=== PATIENT | female | born 1970 | race Caucasian/White ===

== ENCOUNTER 2018-01-30 08:07 | Emergency (ER) | payer BC ==
[~2018-01-30] VITALS: Ht 177.8 cm; Wt 68.8 kg
[~2018-01-30 08:07] MED LIST: ACET-1256 PO; ASPI-390 PO; IBUP-103 PO
[2018-01-30 08:11] VITALS: Ht 177.8 cm; Wt 68.8 kg
[2018-01-30] MEDS ORDERED: KETOROLAC TROMETHAMINE 30 MG/ML VIAL IV STA (08:28)
[2018-01-30] MEDS ORDERED: SODIUM CHLORIDE 0.9% 1000ML 1,000 ML IV STA (08:28)
[2018-01-30] MEDS ORDERED: ONDANSETRON INJ 2 MG/ML 2 ML VIAL IV STA (08:28)
[2018-01-30] MEDS ORDERED: HYDROmorphone INJ 1 MG/ML SYR IV STA (08:28)
[2018-01-30 08:56] LABS: BASO % 0.2 %; BASO ABS # 0.02 K/uL (0-0.2); EOS % 1.1 %; HEMOGLOBIN 13.6 g/dL (12.0-16.0); IG# 0.01 K/uL (0.00-0.02); LYMPH % 9.8 %; LYMPH ABS # 0.89 K/uL (1.2-3.4); MEAN CELL VOLUME 89.9 fL (80-100); MEAN CORPUSCULAR HEMOGLOBIN 31.3 pg (25-34); MEAN CORPUSCULAR HGB CONC 34.9 g/dl (32-36); MEAN PLATELET VOLUME 11.5 fL (7.4-10.4); MONO % 5.6 %; MONO ABS # 0.51 K/uL (0.11-0.59); NEUT % 83.2 %; NEUT ABS # 7.58 K/uL (1.4-6.5); PLATELET COUNT 213 K/uL (130-400); RED CELL DISTRIBUTION WIDTH CV 13.2 % (11.5-14.5); RED CELL DISTRIBUTION WIDTH SD 43.2 fL (36.4-46.3); WHITE BLOOD COUNT 9.11 K/uL (4.8-10.8)
[2018-01-30 09:13] LABS: ALBUMIN 4.5 gm/dl (3.4-5.0); CALCIUM 9.6 mg/dl (8.5-10.1); CREATININE 1.02 mg/dl (0.60-1.20); POTASSIUM 3.5 mmol/L (3.5-5.1)
[2018-01-30 09:16] LABS: TOTAL PROTEIN 8.5 gm/dl (6.4-8.2)
--- NOTE | 2018-01-30 09:16 | DIAGNOSTIC IMAGING REPORT ---
CT OF THE ABDOMEN AND PELVIS WITHOUT CONTRAST CLINICAL HISTORY: Left flank pain. COMPARISON STUDY: No previous studies for comparison. TECHNIQUE: Axial images of the abdomen and pelvis were obtained without IV contrast. Images were reviewed in the axial, sagittal, and coronal planes. A dose lowering technique was utilized adhering to the principles of ALARA. FINDINGS: Lung bases are clear. Multiple small bilateral renal calculi are noted which measure up to 4 mm. There is mild left hydronephrosis. The course of the left ureter is difficult to follow on this exam although there are 2 suspected closely apposed distal left ureteral calculi. The largest calculus measures 4 mm to the smaller calculus measures 2 mm. No additional ureteral calculi are identified. Evaluation of the abdomen and pelvis is suboptimal as unenhanced exam. The liver, spleen, adrenal glands and pancreas are normal. There is no evidence for a bowel obstruction. There is no lymphadenopathy or ascites. Additional pelvic calcifications represent phlebolith. There is subchondral sclerosis of the anterior superior aspect of the bilateral femoral heads without collapse. IMPRESSION: 1. Mild left hydronephrosis due to two suspected closely apposed distal left ureteral calculi which measure up to 4 mm. 2. Bilateral nephrolithiasis. 3. 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 Electronically signed by: Obey Roe M.D. 01/30/2018 9:15 AM Dictated Date/Time: 01/30/2018 9:04 AM
[2018-01-30] MEDS ORDERED: SYM100 PO (09:41)
[2018-01-30] MEDS ORDERED: ZONI100C2 PO (09:41)
[2018-01-30] MEDS ORDERED: WLLSR150 PO (09:41)
[2018-01-30] MEDS ORDERED: OXYC1TAB3 PO (10:02)
[2018-01-30 10:40] VITALS: BP 113/74; PULSE 75; TEMP 36.4; O2SAT 97
--- NOTE | 2018-01-30 13:48 | EMERGENCY ROOM VISIT NOTE ---
History First contact with patient: 08:12 Chief Complaint: ABDOMINAL PAIN Stated Complaint: KIDNEY PAIN, STOMACH PAIN, CHILLS Nursing Triage Summary: triage note; pt reports since waking today she has had left lower back pain and now the pain wrap around to the front too. pt denies any hx of kidney stones. pt reports nausea. History of Present Illness The patient is a 47 year old female who presents to the Emergency Room with complaints of progressively worsening left lower back/flank pain. The patient reports that she awoke this morning with this discomfort. As the morning has progressed, the pain has also progressively worsened. A friend who brought her here reported that she was in severe discomfort on route. The patient has not noticed any change in urinary frequency, pattern or discomfort. She has not noticed any blood in her urine. The patient reports that she usually is constipated. She denies any alleviating or aggravating factors for her pain. The patient reports nausea without vomiting. She denies any other recent infections, and currently rates her discomfort a 10 out of 10. The patient denies any prior history of GI disease or kidney stones. Review of Systems HEENT: Denies dizziness, visual problems, hearing loss, tinnitus. Denies difficulty swallowing or oral lesions. PULMONARY: Denies cough, shortness of breath, sputum production or hemoptysis. CARDIOVASCULAR: Denies chest pain, palpitations, dyspnea on exertion, orthopnea or peripheral edema. GASTROINTESTINAL: See HPI. GENITOURINARY: Denies dysuria, frequency, urgency or nocturia. NEUROLOGIC: Denies history of epilepsy, CVA, TIA or chronic headaches. MUSCULOSKELETAL: Denies history of joint tenderness/swelling. SKIN: Denies rashes or lesions. PSYCHIATRIC: Denies history of depression or mental illness. ENDOCRINE: Denies history of diabetes or thyroid disorders. Past Medical/Surgical History Medical Problems: (1) Cerebrovascular disease (2) Chronic interstitial cystitis (3) Shingles (4) Zoster Surgical Problems: (1) S/P tubal ligation Family History Cancer Diabetes mellitus Heart disease Hypertension Social History Smoking Status: Never Smoker Alcohol Use: none Marital Status: Housing Status: lives with family Occupation Status: employed Current/Historical Medications Scheduled Amantadine HCl (Amantadine HCl), 100 MG PO HS Bupropion HCl (Bupropion HCl Sr), 150 MG PO HS Zonisamide (Zonegran), 100 MG PO HS Scheduled PRN Ibuprofen Tab (Advil), 800 MG PO Q6H PRN for Headache or Pain Oxycodone Ir (Roxicodone Ir), 1-2 TAB PO Q4H PRN for Pain Physical Exam Vital Signs Date Time Temp Pulse Resp B/P (MAP) Pulse Ox O2 Delivery O2 Flow Rate FiO2 01/30/18 10:40 36.4 75 18 113/74 97 01/30/18 10:27 75 18 113/74 97 01/30/18 09:21 79 18 124/83 97 Room Air 01/30/18 08:11 36.4 84 18 125/72 99 Room Air Physical Exam CONSTITUTIONAL: Healthy and well nourished. Alert and oriented X 3 with positive affect. Patient appears in moderately severe discomfort. HEENT: Normocephalic, atraumatic. Pupils equal, round and reactive. No scleral icterus or conjunctival injection. NECK: Full active range of motion without discomfort. RESPIRATORY: Clear to auscultation bilaterally with no wheezing, crackles, rhonchi or stridor. CARDIOVASCULAR: Regular rate and rhythm with no murmurs, rubs or gallops. GASTROINTESTINAL: Bowel sounds present in all quadrants. Patient has no focal abdominal tenderness to palpation. She does have mild left flank tenderness to palpation without evidence for ecchymosis or erythema. Negative McBurney's point tenderness. No focal left lower quadrant tenderness to palpation. No abdominal rigidity, guarding or rebound. MUSCULOSKELETAL: Full range of motion of all joints without discomfort. INTEGUMENTARY: No rash or other significant dermatologic conditions noted. hematologic: No ecchymosis or petechiae appreciated. NEUROLOGIC: No focal neurologic deficits noted. Medical Decision & Procedures ER Provider Diagnostic Interpretation: Noncontrast CT of the abdomen and pelvis shows 2 distal left ureteral calculi measuring up to 4 mm. Additional and multiple small bilateral renal calculi are also noted. Radiologist report is as follows: CT OF THE ABDOMEN AND PELVIS WITHOUT CONTRAST CLINICAL HISTORY: Left flank pain. COMPARISON STUDY: No previous studies for comparison. TECHNIQUE: Axial images of the abdomen and pelvis were obtained without IV contrast. Images were reviewed in the axial, sagittal, and coronal planes. A dose lowering technique was utilized adhering to the principles of ALARA. FINDINGS: Lung bases are clear. Multiple small bilateral renal calculi are noted which measure up to 4 mm. There is mild left hydronephrosis. The course of the left ureter is difficult to follow on this exam although there are 2 suspected closely apposed distal left ureteral calculi. The largest calculus measures 4 mm to the smaller calculus measures 2 mm. No additional ureteral calculi are identified. Evaluation of the abdomen and pelvis is suboptimal as unenhanced exam. The liver, spleen, adrenal glands and pancreas are normal. There is no evidence for a bowel obstruction. There is no lymphadenopathy or ascites. Additional pelvic calcifications represent phlebolith. There is subchondral sclerosis of the anterior superior aspect of the bilateral femoral heads without collapse. IMPRESSION: 1. Mild left hydronephrosis due to two suspected closely apposed distal left ureteral calculi which measure up to 4 mm. 2. Bilateral nephrolithiasis. 3. 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 Laboratory Results 01/30/18 08:45 Red Blood Count 4.34, Mean Corpuscular Volume 89.9, Mean Corpuscular Hemoglobin 31.3, Mean Corpuscular Hemoglobin Concent 34.9, Mean Platelet Volume 11.5, Neutrophils (%) (Auto) 83.2, Lymphocytes (%) (Auto) 9.8, Monocytes (%) (Auto) 5.6, Eosinophils (%) (Auto) 1.1, Basophils (%) (Auto) 0.2, Neutrophils # (Auto) 7.58, Lymphocytes # (Auto) 0.89, Monocytes # (Auto) 0.51, Eosinophils # (Auto) 0.10, Basophils # (Auto) 0.02 01/30/18 08:45 Test 01/30/18 08:45 White Blood Count 9.11 K/uL (4.8-10.8) Red Blood Count 4.34 M/uL (4.2-5.4) Hemoglobin 13.6 g/dL (12.0-16.0) Hematocrit 39.0 % (37-47) Mean Corpuscular Volume 89.9 fL (80-100) Mean Corpuscular Hemoglobin 31.3 pg (25-34) Mean Corpuscular Hemoglobin Concent 34.9 g/dl (32-36) Platelet Count 213 K/uL (130-400) Mean Platelet Volume 11.5 fL (7.4-10.4) Neutrophils (%) (Auto) 83.2 % Lymphocytes (%) (Auto) 9.8 % Monocytes (%) (Auto) 5.6 % Eosinophils (%) (Auto) 1.1 % Basophils (%) (Auto) 0.2 % Neutrophils # (Auto) 7.58 K/uL (1.4-6.5) Lymphocytes # (Auto) 0.89 K/uL (1.2-3.4) Monocytes # (Auto) 0.51 K/uL (0.11-0.59) Eosinophils # (Auto) 0.10 K/uL (0-0.5) Basophils # (Auto) 0.02 K/uL (0-0.2) RDW Standard Deviation 43.2 fL (36.4-46.3) RDW Coefficient of Variation 13.2 % (11.5-14.5) Immature Granulocyte % (Auto) 0.1 % Immature Granulocyte # (Auto) 0.01 K/uL (0.00-0.02) Urine Color DK YELLOW Urine Appearance CLOUDY (CLEAR) Urine pH 5.5 (4.5-7.5) Urine Specific [place] 1.022 (1.000-1.030) Urine Protein NEG (NEG) Urine Glucose (UA) NEG (NEG) Urine Ketones NEG (NEG) Urine Occult Blood 3+ (NEG) Urine Nitrite NEG (NEG) Urine Bilirubin NEG (NEG) Urine Urobilinogen NEG (NEG) Urine Leukocyte Esterase TRACE (NEG) Urine WBC (Auto) 1-5 /hpf (0-5) Urine RBC (Auto) >30 /hpf (0-4) Urine Hyaline Casts (Auto) 1-5 /lpf (0-5) Urine Epithelial Cells (Auto) >30 /lpf (0-5) Urine Bacteria (Auto) NEG (NEG) Anion Gap 9.0 mmol/L (3-11) Est Creatinine Clear Calc Drug Dose 72.9 ml/min Estimated GFR () 75.3 Estimated GFR (Non- 65.0 BUN/Creatinine Ratio 14.2 (10-20) Calcium Level 9.6 mg/dl (8.5-10.1) Total Bilirubin 0.5 mg/dl (0.2-1) Aspartate Amino Transf (AST/SGOT) 12 U/L (15-37) Alanine Aminotransferase (ALT/SGPT) 10 U/L (12-78) Alkaline Phosphatase 153 U/L (45-117) Total Protein 8.5 gm/dl (6.4-8.2) Albumin 4.5 gm/dl (3.4-5.0) Globulin 4.0 gm/dl (2.5-4.0) Albumin/Globulin Ratio 1.1 (0.9-2) Lipase 119 U/L (73-393) The above labs were reviewed, showing no significant gross findings. Urinalysis does not show any evidence for infection. Hematuria is noted. Urine was negative. Medications Administered Medications (Trade) Dose Ordered Sig/Asad Route Start Time Stop Time Status Last Admin Dose Admin Sodium Chloride 1,000 ml @ 999 mls/hr Q1H1M STAT IV 01/30/18 08:28 01/30/18 09:28 DC 01/30/18 09:11 999 MLS/HR Ketorolac Tromethamine (Toradol Inj) 30 mg NOW STAT IV 01/30/18 08:28 01/30/18 08:33 DC 01/30/18 09:09 30 MG Hydromorphone HCl (Dilaudid Inj) 1 mg NOW STAT IV 01/30/18 08:28 01/30/18 08:33 DC 01/30/18 09:10 1 MG Ondansetron HCl (Zofran Inj) 4 mg NOW STAT IV 01/30/18 08:28 01/30/18 08:33 DC 01/30/18 09:10 4 MG ED Course Patient history and physical exam were performed. Nurse's notes were reviewed. Vital signs were reviewed and were normal. The patient is normotensive and not tachycardic or febrile. The patient does appear in notable discomfort. IV access was established, and labs were drawn. Patient was hydrated with a liter of normal saline, and was administered IV Dilaudid, Toradol and Zofran for pain. The patient reports that she cannot tolerate morphine, and reports that Dilaudid does not really help with her pain. Review of labs did not show any significant abnormal findings. Noncontrast CT of the abdomen and pelvis shows two distal left ureteral calculi, measuring 2 and 4 mm. Patient also has multiple small intrarenal calculi bilaterally. Findings were discussed with the patient. The patient reported that her pain was significantly improved, rating her discomfort a 2 out of 10 at the conclusion of my exam. The patient was encouraged to increase fluid intake. She was provided a prescription for OxyIR as needed for worse pain. She was provided contact information for the [facility] urology office. She was instructed to return to the emergency department for uncontrollable pain, vomiting or developing fever. I also discussed CT findings indicating possible bilateral femoral head avascular necrosis. The patient reports that she has never had any problems with her hips. She was encouraged to follow-up with her PCP to discuss these findings, and possibly orthopedic referral. The patient was happy with plan of care, and voiced understanding of all discharge instructions. Medical Decision Evaluation today shows evidence for distal left ureteral calculi. Urinalysis is not suggestive of UTI. I do not suspect diverticulitis, bowel obstruction, appendicitis or cardiopulmonary referred pain. Muscular skeletal etiology was also considered but felt not likely. [facility] Drug Monitoring Program Search Results: patient reviewed within database, no issues identified Medication Reconcilliation Current Medication List: was personally reviewed by me Blood Pressure Screening Patient's blood pressure: Normal blood pressure Impression Primary Impression: Left ureteral calculus Additional Impressions: Renal calculus, bilateral Avascular necrosis of bones of both hips Departure Information Prescriptions Oxycodone Ir (Roxicodone Ir) 5 Mg Tab 1-2 TAB PO Q4H Y for Pain, #15 TAB For Initial Treatment Prov: Grupo Garcia PA 01/30/18 Referrals Jerome Carrasco M.D.([facility]) (PCP) Patient Instructions My [facility] Problem Qualifiers
== END 2018-01-30 10:41 | disposition home or self-care (01) ==
LOC: C.EDB 08:09 → C.EDA 10:41
DX: N20.2 Calculus of kidney with calculus of ureter (principal); M87.9 Osteonecrosis, unspecified; Z98.51 Tubal ligation status; Z83.3 Family history of diabetes mellitus; Z82.49 Family history of ischemic heart disease and other diseases of the circulatory system

== ENCOUNTER → 2018-03-14 | Outpatient (CLI) | payer BC ==
[~2018-03-14] MED LIST changes: -ACET-1256 PO; -ASPI-390 PO; +OXYC1TAB3 PO; +SYM100 PO; +WLLSR150 PO; +ZONI100C2 PO
== END | disposition home or self-care (01) ==
LOC: C.RDSM 14:46
PROVIDERS: ATTEND Orthopaedic Surgery
DX: M25.551 Pain in right hip (principal); M25.552 Pain in left hip

== ENCOUNTER 2018-05-28 11:36 | Emergency (ER) | payer BC ==
[~2018-05-28] VITALS: Ht 177.8 cm; Wt 68.0 kg
[~2018-05-28 11:36] MED LIST changes: +OXYC-90 PO; -OXYC1TAB3 PO
[2018-05-28 11:51] VITALS: TEMP 36.3; Ht 177.8 cm; Wt 68.0 kg
[2018-05-28] MEDS ORDERED: ONDANSETRON INJ 2 MG/ML 2 ML VIAL IV STA (12:10)
[2018-05-28] MEDS ORDERED: SODIUM CHLORIDE 0.9% 1000ML 1,000 ML IV STA (12:10)
[2018-05-28] MEDS ORDERED: KETOROLAC TROMETHAMINE 30 MG/ML VIAL IV STA (12:10)
[2018-05-28] MEDS ORDERED: HYDROmorphone INJ 0.5 MG/0.5 ML SYR IV STA ×2 (12:10→13:28)
[2018-05-28 12:24] LABS: BASO % 0.3 %; BASO ABS # 0.02 K/uL (0-0.2); EOS % 0.6 %; EOS ABS # 0.05 K/uL (0-0.5); HEMATOCRIT 39.5 % (37-47); HEMOGLOBIN 13.3 g/dL (12.0-16.0); IG# 0.01 K/uL (0.00-0.02); LYMPH % 11.1 %; LYMPH ABS # 0.88 K/uL (1.2-3.4); MEAN CELL VOLUME 91.9 fL (80-100); MEAN CORPUSCULAR HEMOGLOBIN 30.9 pg (25-34); MEAN CORPUSCULAR HGB CONC 33.7 g/dl (32-36); MEAN PLATELET VOLUME 12.3 fL (7.4-10.4); MONO % 5.9 %; MONO ABS # 0.47 K/uL (0.11-0.59); NEUT ABS # 6.48 K/uL (1.4-6.5); PLATELET COUNT 181 K/uL (130-400); RED CELL DISTRIBUTION WIDTH CV 13.3 % (11.5-14.5); RED CELL DISTRIBUTION WIDTH SD 44.3 fL (36.4-46.3); WHITE BLOOD COUNT 7.91 K/uL (4.8-10.8)
[2018-05-28 12:26] VITALS: O2SAT 98
[2018-05-28 12:43] LABS: ALBUMIN 4.6 gm/dl (3.4-5.0); CALCIUM 9.4 mg/dl (8.5-10.1); CREATININE 1.05 mg/dl (0.60-1.20); POTASSIUM 3.8 mmol/L (3.5-5.1)
--- NOTE | 2018-05-28 13:05 | DIAGNOSTIC IMAGING REPORT ---
ABDOMEN AND PELVIS CT WITHOUT CONTRAST CT DOSE: 270.12 mGy.cm HISTORY: Acute right flank and right lower quadrant abdominal pain R flank/RLQ pain TECHNIQUE: Multiaxial CT images of the abdomen and pelvis were performed without contrast. A dose lowering technique was utilized adhering to the principles of ALARA. COMPARISON STUDY: CT abdomen and pelvis 01/30/2018 FINDINGS: Lung bases are clear. Punctate calcified granuloma of the posterior basal segment right lower lobe. No pneumatosis or pneumoperitoneum. Imaged inferior cardiac chambers are unremarkable. Gallbladder, liver, spleen, pancreas and adrenal glands are unremarkable. Nonobstructing 4 mm calculus of the interpolar left kidney. The previously noted nonobstructing 4 mm calculus of the interpolar right kidney is no longer present. 2 mm calculus of the interpolar right kidney is unchanged. Moderate right-sided hydroureteronephrosis, likely secondary to distal ureteral calculus which is not definitively seen. There are multiple phleboliths about the bilateral pelvis. Bladder is partially decompressed. Uterus and adnexa are unremarkable. No left hydronephrosis. The aorta and IVC are within normal limits. There are no pathologically enlarged lymph nodes. No bowel obstruction or focal bowel wall thickening. Moderate formed colonic stool. Terminal ileum is unremarkable. Appendix is not definitively seen. No secondary signs of acute appendicitis. Soft tissues are unremarkable. Mild facet arthropathy about the lower lumbar spine. 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 Levoscoliosis of the lumbar spine. IMPRESSION: 1. Moderate right-sided hydroureteronephrosis, likely secondary to a distal obstructing calculus which is not definitively seen on this study. There are multiple phleboliths of the pelvis present. The previously noted 4 mm nonobstructing calculus of the interpolar right kidney seen on study dated 01/30/2018 is no longer identified and has likely passed in the interval. 2. Nonobstructing bilateral nephrolithiasis. 3. No bowel obstruction or focal bowel wall thickening. Electronically signed by: Francisco Parkinson M.D. 05/28/2018 1:03 PM Dictated Date/Time: 05/28/2018 12:52 PM
[2018-05-28] MEDS ORDERED: OXYC-90 PO (13:31)
[2018-05-28] MEDS ORDERED: TAMS0.4C38 PO (13:43)
[2018-05-28 13:44] VITALS: BP 98/52; PULSE 67; O2SAT 97
--- NOTE | 2018-05-28 22:09 | EMERGENCY ROOM VISIT NOTE ---
History First contact with patient: 11:55 Chief Complaint: FLANK PAIN Stated Complaint: PAIN R SIDE BACK, KIDNEY History of Present Illness The patient is a 47 year old female who presents to the Emergency Room with complaints of abrupt onset of right flank pain at 6:30 AM this morning shortly after awakening. The patient reports that she recently had 2 left-sided kidney stones in January the past on the room. She reports that this somewhat feels the same. She reports that the pain is worse with movement and ambulation. She denies any pain radiating into the right buttock, hip or right lower extremity. She reports nausea without vomiting. She reports the pain is mostly constant , and rates her discomfort a 10 out of 10. Review of Systems HEENT: Denies dizziness, visual problems, hearing loss, tinnitus. Denies difficulty swallowing or oral lesions. PULMONARY: Denies cough, shortness of breath, sputum production or hemoptysis. CARDIOVASCULAR: Denies chest pain, palpitations, dyspnea on exertion, orthopnea or peripheral edema. GASTROINTESTINAL: Denies recent diarrhea or constipation, otherwise see HPI. GENITOURINARY: Denies dysuria, frequency, urgency or nocturia. NEUROLOGIC: Denies history of epilepsy, CVA, TIA or chronic headaches. MUSCULOSKELETAL: Denies history of joint tenderness/swelling. SKIN: Denies rashes or lesions. PSYCHIATRIC: Denies history of depression or mental illness. ENDOCRINE: Denies history of diabetes or thyroid disorders. Past Medical/Surgical History Medical Problems: (1) Cerebrovascular disease (2) Chronic interstitial cystitis (3) Shingles (4) Zoster Surgical Problems: (1) S/P tubal ligation Family History Cancer Diabetes mellitus Heart disease Hypertension Social History Smoking Status: Never Smoker Alcohol Use: none Marital Status: Housing Status: lives with family Occupation Status: employed Current/Historical Medications Scheduled Amantadine HCl (Amantadine HCl), 100 MG PO HS Bupropion HCl (Bupropion HCl Sr), 150 MG PO HS Tamsulosin Hcl (Flomax), 0.4 MG PO QD Zonisamide (Zonegran), 100 MG PO HS Scheduled PRN Ibuprofen Tab (Advil), 800 MG PO Q6H PRN for Headache or Pain Oxycodone Ir (Roxicodone Ir), 1 TAB PO Q4H PRN for Pain Physical Exam Vital Signs Date Time Temp Pulse Resp B/P (MAP) Pulse Ox O2 Delivery O2 Flow Rate FiO2 8/1/18 13:44 67 98/52 97 Room Air 05/28/18 12:26 98 Room Air 05/28/18 11:51 36.3 84 24 116/71 98 Room Air Physical Exam CONSTITUTIONAL: Healthy and well nourished. Alert and oriented X 3 with positive affect. Patient appears in moderately severe discomfort. HEENT: Normocephalic, atraumatic. Pupils equal, round and reactive. Ears and nares are clear. No scleral icterus or conjunctival injection/pallor. NECK: Full active range of motion without discomfort. No obvious JVD. No carotid bruits on auscultation. RESPIRATORY: Clear to auscultation bilaterally with no wheezing, crackles, rhonchi or stridor. CARDIOVASCULAR: Regular rate and rhythm with no murmurs, rubs or gallops. GASTROINTESTINAL: Bowel sounds present in all quadrants. Patient has notable right lower quadrant tenderness to palpation with positive psoas/obturator sign. Negative heel tap. Negative Rovsing sign. Mildly positive CVA tenderness. No abdominal rigidity, guarding or rebound. MUSCULOSKELETAL: Full range of motion of all joints without discomfort. Patient has no discomfort with logroll. No focal tenderness to palpation through the lower lumbar spine, paraspinous muscle or SI joint. INTEGUMENTARY: No rash or other significant dermatologic conditions noted. NEUROLOGIC: No focal neurologic deficits noted. Right lower extremity is sensory intact. Medical Decision & Procedures ER Provider Diagnostic Interpretation: Noncontrast CT of the abdomen and pelvis shows a moderate right hydroureteronephrosis with no obvious and visible ureteral calculus. No bowel obstruction, free air or periappendiceal infiltration noted. The appendix could not be visualized. Radiologist report is as follows: ABDOMEN AND PELVIS CT WITHOUT CONTRAST CT DOSE: 270.12 mGy.cm HISTORY: Acute right flank and right lower quadrant abdominal pain R flank/RLQ pain TECHNIQUE: Multiaxial CT images of the abdomen and pelvis were performed without contrast. A dose lowering technique was utilized adhering to the principles of ALARA. COMPARISON STUDY: CT abdomen and pelvis 01/30/2018 FINDINGS: Lung bases are clear. Punctate calcified granuloma of the posterior basal segment right lower lobe. No pneumatosis or pneumoperitoneum. Imaged inferior cardiac chambers are unremarkable. Gallbladder, liver, spleen, pancreas and adrenal glands are unremarkable. Nonobstructing 4 mm calculus of the interpolar left kidney. The previously noted nonobstructing 4 mm calculus of the interpolar right kidney is no longer present. 2 mm calculus of the interpolar right kidney is unchanged. Moderate right-sided hydroureteronephrosis, likely secondary to distal ureteral calculus which is not definitively seen. There are multiple phleboliths about the bilateral pelvis. Bladder is partially decompressed. Uterus and adnexa are unremarkable. No left hydronephrosis. The aorta and IVC are within normal limits. There are no pathologically enlarged lymph nodes. No bowel obstruction or focal bowel wall thickening. Moderate formed colonic stool. Terminal ileum is unremarkable. Appendix is not definitively seen. No secondary signs of acute appendicitis. Soft tissues are unremarkable. Mild facet arthropathy about the lower lumbar spine. 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 Levoscoliosis of the lumbar spine. IMPRESSION: 1. Moderate right-sided hydroureteronephrosis, likely secondary to a distal obstructing calculus which is not definitively seen on this study. There are multiple phleboliths of the pelvis present. The previously noted 4 mm nonobstructing calculus of the interpolar right kidney seen on study dated 01/30/2018 is no longer identified and has likely passed in the interval. 2. Nonobstructing bilateral nephrolithiasis. 3. No bowel obstruction or focal bowel wall thickening. Laboratory Results 05/28/18 12:11 Red Blood Count 4.30, Mean Corpuscular Volume 91.9, Mean Corpuscular Hemoglobin 30.9, Mean Corpuscular Hemoglobin Concent 33.7, Mean Platelet Volume 12.3, Neutrophils (%) (Auto) 82.0, Lymphocytes (%) (Auto) 11.1, Monocytes (%) (Auto) 5.9, Eosinophils (%) (Auto) 0.6, Basophils (%) (Auto) 0.3, Neutrophils # (Auto) 6.48, Lymphocytes # (Auto) 0.88, Monocytes # (Auto) 0.47, Eosinophils # (Auto) 0.05, Basophils # (Auto) 0.02 05/28/18 12:11 Test 05/28/18 12:11 White Blood Count 7.91 K/uL (4.8-10.8) Red Blood Count 4.30 M/uL (4.2-5.4) Hemoglobin 13.3 g/dL (12.0-16.0) Hematocrit 39.5 % (37-47) Mean Corpuscular Volume 91.9 fL (80-100) Mean Corpuscular Hemoglobin 30.9 pg (25-34) Mean Corpuscular Hemoglobin Concent 33.7 g/dl (32-36) Platelet Count 181 K/uL (130-400) Mean Platelet Volume 12.3 fL (7.4-10.4) Neutrophils (%) (Auto) 82.0 % Lymphocytes (%) (Auto) 11.1 % Monocytes (%) (Auto) 5.9 % Eosinophils (%) (Auto) 0.6 % Basophils (%) (Auto) 0.3 % Neutrophils # (Auto) 6.48 K/uL (1.4-6.5) Lymphocytes # (Auto) 0.88 K/uL (1.2-3.4) Monocytes # (Auto) 0.47 K/uL (0.11-0.59) Eosinophils # (Auto) 0.05 K/uL (0-0.5) Basophils # (Auto) 0.02 K/uL (0-0.2) RDW Standard Deviation 44.3 fL (36.4-46.3) RDW Coefficient of Variation 13.3 % (11.5-14.5) Immature Granulocyte % (Auto) 0.1 % Immature Granulocyte # (Auto) 0.01 K/uL (0.00-0.02) Urine Color DK YELLOW Urine Appearance CLOUDY (CLEAR) Urine pH 5.5 (4.5-7.5) Urine Specific [employer] 1.025 (1.000-1.030) Urine Protein 1+ (NEG) Urine Glucose (UA) NEG (NEG) Urine Ketones NEG (NEG) Urine Occult Blood 3+ (NEG) Urine Nitrite NEG (NEG) Urine Bilirubin NEG (NEG) Urine Urobilinogen NEG (NEG) Urine Leukocyte Esterase NEG (NEG) Urine WBC (Auto) 1-5 /hpf (0-5) Urine RBC (Auto) >30 /hpf (0-4) Urine Hyaline Casts (Auto) 1-5 /lpf (0-5) Urine Epithelial Cells (Auto) 20-30 /lpf (0-5) Urine Bacteria (Auto) NEG (NEG) Anion Gap 8.0 mmol/L (3-11) Est Creatinine Clear Calc Drug Dose 70.3 ml/min Estimated GFR () 72.7 Estimated GFR (Non- 62.8 BUN/Creatinine Ratio 15.5 (10-20) Calcium Level 9.4 mg/dl (8.5-10.1) Total Bilirubin 0.6 mg/dl (0.2-1) Aspartate Amino Transf (AST/SGOT) 11 U/L (15-37) Alanine Aminotransferase (ALT/SGPT) 13 U/L (12-78) Alkaline Phosphatase 112 U/L (45-117) Total Protein 8.0 gm/dl (6.4-8.2) Albumin 4.6 gm/dl (3.4-5.0) Globulin 3.4 gm/dl (2.5-4.0) Albumin/Globulin Ratio 1.3 (0.9-2) Lipase 97 U/L (73-393) The above labs were reviewed. Patient does have 3+ hematuria without signs of infection. Remaining labs, including CBC, CMP and lipase are normal. Medications Administered Medications (Trade) Dose Ordered Sig/Asad Route Start Time Stop Time Status Last Admin Dose Admin Sodium Chloride 1,000 ml @ 999 mls/hr Q1H1M STAT IV 05/28/18 12:10 05/28/18 13:10 DC 05/28/18 12:18 999 MLS/HR Ketorolac Tromethamine (Toradol Inj) 30 mg NOW STAT IV 05/28/18 12:10 05/28/18 12:14 DC 05/28/18 12:19 30 MG Ondansetron HCl (Zofran Inj) 4 mg NOW STAT IV 05/28/18 12:10 05/28/18 12:14 DC 05/28/18 12:17 4 MG Hydromorphone HCl (Dilaudid Inj) 0.5 mg NOW STAT IV 05/28/18 12:10 05/28/18 12:14 DC 05/28/18 12:19 0.5 MG Hydromorphone HCl (Dilaudid Inj) 0.5 mg NOW STAT IV 05/28/18 13:28 05/28/18 13:29 DC 05/28/18 13:42 0.5 MG Procedure 1. IV hydration: The patient was administered a normal saline 1 liter bolus 2. IV medications: The patient was initially administered Dilaudid 0.5 mg, Toradol 30 mg and Zofran 4 mg IVP. The patient was administered an additional Dilaudid 0.5 mg IVP prior to discharge. ED Course Patient history and physical exam were performed. Nurse's notes were reviewed. Vital signs were reviewed and were normal. Patient appears in notable discomfort. IV access was established, and labs were drawn. The patient was hydrated with a liter normal saline, and was administered IV analgesics and anti -medics as discussed in the previous Procedure section. Labs were reviewed to show hematuria, otherwise no evidence for leukocytosis or electrolyte abnormality. LFTs and lipase were also normal. Noncontrast CT of the abdomen and pelvis shows a moderate right hydroureteronephrosis that would be seen with a recently passed stone. No obvious distal ureteral calculus is visualized. The remaining CT scan does not show any other acute intra-abdominal etiologies. Findings were discussed with the patient. I also discussed the case further with Dr. Corona, ED attending physician, who agrees with workup and outpatient management. The patient will be provided a prescription for Flomax and OxyIR 5 mg as the patient reports she only has a few OxyIR at home. She was provided contact information for [facility]. She was instructed to return to the emergency department for any uncontrollable pain, vomiting or fever. She was encouraged to remain well-hydrated and continue to strain her urine for stones. The patient reports that she has had a stone analysis from a stone she collected from her most recent passed stone, and was determined to be calcium oxalate composition. The patient was happy with plan of care, voiced understanding of all discharge instructions, rated her pain a 4 out of 10 at the conclusion of my exam, and discharged with friends. Medical Decision Patient presents with symptoms and personal history of nephrolithiasis that is suggestive of renal colic secondary to a right ureteral calculus. She does have a moderate hydroureteronephrosis. Laboratory studies are not suggestive of cholecystitis, hepatitis or pancreatitis. Abdominal exam is not suggestive of peritonitis. Although she did have some right lower quadrant tenderness to palpation, no periappendiceal changes are noted on noncontrast study. I do not suspect pelvic referred pain. [place] Drug Monitoring Program Search Results: patient reviewed within database, no issues identified Medication Reconcilliation Current Medication List: was personally reviewed by me Blood Pressure Screening Patient's blood pressure: Normal blood pressure Impression Primary Impression: Renal colic on right side Additional Impression: Bilateral nephrolithiasis Departure Information Prescriptions Tamsulosin Hcl (FLOMAX) 0.4 Mg Cap 0.4 MG PO QD for 5 Days, #5 CAP Prov: Grupo Garcia PA 05/28/18 Oxycodone Ir (Roxicodone Ir) 5 Mg Tab 1 TAB PO Q4H Y for Pain, #15 TAB For Initial Treatment Prov: Grupo Garcia PA 05/28/18 Referrals Jerome Carrasco M.D.([facility]) (PCP) Patient Instructions My [facility] Problem Qualifiers
== END 2018-05-28 13:56 | disposition home or self-care (01) ==
LOC: C.EDB 11:37 → C.EDC 13:56
DX: N13.30 Unspecified hydronephrosis (principal); N20.0 Calculus of kidney; Z87.442 Personal history of urinary calculi